=== PATIENT | male | born 1965 | race Caucasian/White ===

== ENCOUNTER → 2016-03-31 | Outpatient (CLI) | payer BC ==
--- NOTE | 2016-03-31 20:34 | CONS ---
DATE OF CONSULTATION: 03/31/2016 CONSULTATION/NEW PATIENT EVALUATION 51-year-old gentleman, who had [facility] for significant excessive daytime sleepiness and obstructive sleep apnea-hypopnea syndrome. HISTORY OF PRESENT ILLNESS/SLEEP-WAKE EVALUATION: Patient had been diagnosed with extremely severe obstructive sleep apnea-hypopnea syndrome about one year ago by results of home sleep apnea test. Test showed apnea-hypopnea index 93.2 with oxygen desaturation to 77%. Since that time the patient is on treatment with auto Pap with a regimen of pressure between 5 and 20 cm of water. I checked his CPAP unit. it showed that average pressure in the machine 13.1. Patient had significant leak from the mask 53 liters per minute. Usage is 28 out of 30 nights for more than 4 hours. SLEEP SCHEDULE: Patient's usual sleep schedule on working days from 9:00 to 11:00 p.m. until 5:00 a.m. and on weekends from around 9:00 to 11:00 until 7:00 or 8:00 a.m. DURING SLEEP: Patient continues to have some awakenings from sleep. DURING THE DAY/WAKE STATE: He feels sleepy during the day. Hope Sleepiness Scale significantly increased to 18. Patient also feels sleepiness while driving. He take naps practically every day when he has time he is taking naps. PAST MEDICAL HISTORY: Positive for hypothyroidism, depression. PAST SURGICAL HISTORY: Colonoscopy. MEDICATIONS: Synthroid, Celexa, vitamin D and B12. SOCIAL HISTORY: Negative for smoking. Alcohol consumption occasional. REVIEW OF SYSTEMS: Awakenings from sleep, sleepiness during the day. No significant changes of the weight according to the patient. No fevers. No double vision. No recent chest pain. No shortness of breath. No abdominal pain. No bleeding episodes. No blood in urine. No seizure episodes. FAMILY HISTORY: Diabetes, hypertension. PHYSICAL EXAMINATION: GENERAL: A 51-year-old gentleman without distress. VITAL SIGNS: BP 113/77, HR 86, RR 16. Height 5 feet 7-1/2. Weight 339, BMI 52.3. Temperature 97.7. Oxygen saturation at room air 92%. HEENT: PERRLA, EOMI. Evaluation of oropharynx showed extremely low position of soft palate Mallampati IV. Restriction of nasal breathing bilaterally. NECK: Supple. No JVD. Thyroid is not palpable. LUNGS: Clear to percussion and to auscultation. Good air exchange. No wheezing or rhonchi. HEART: S1, S2 regular. No murmurs, gallops or rubs. ABDOMEN: Obese. Soft and nontender. Bowel sounds are present. No organomegaly appreciated. EXTREMITIES: Up to 1+ ankle edema. No clubbing or cyanosis. SURVEY RESEARCH ASSOCIATE: Awake, alert, and oriented x3. Cranial nerves 2 to 7 intact. There is no fasciculation or atrophy noted. No focal deficits observed. IMPRESSION: 1. Extremely severe obstructive sleep apnea-hypopnea syndrome. Apnea-hypopnea index 93.2 with oxygen desaturation to 77% by results of home sleep apnea test more than one year ago. 2. Patient is on treatment on auto PAP and demonstrated very good compliance with treatment but continued to have significant sleepiness during the day. Hope Sleepiness Scale increased to 18. He has awakenings multiple times from sleep, significant leak from his mask. 3. Obesity; body mass index 52.3. 4. Depression. 5. Hypothyroidism. PLAN: 1. CPAP titration for re-evaluation of effective CPAP pressure at the present time, also to check for possibly changing the mask to avoid any leak. Possibly patient may need additional chin strap. 2. Losing weight. 3. No driving if feeling any sleepiness. 4. If patient continues to have sleepiness after all adjustments will be done with the CPAP, he could be a candidate for multiple sleep latency tests for objective evaluation of his sleepiness and treatment with medication to prevent sleepiness. Thank you very much for allowing me to participate in the management of your patient. Sincerely, David Rose MD, PhD, FAASM. Diplomat of [place] [employer], Sleep Medicine Board by [place] [employer] [place] [employer] Pr Specialist [facility] [place]
== END | disposition home or self-care (01) ==

== ENCOUNTER → 2016-07-26 | Outpatient (CLI) | payer BC ==
--- NOTE | 2016-07-26 19:10 | US ---
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 GLAND SIZE: Right Lobe: 4.6 x 2.0 x 2.0 cm Overall Parenchyma: heterogenous Left Lobe: 4.3 x 1.6 x 1.6 cm Overall Parenchyma: heterogeneous Isthmus Thickness: 0.7 cm NODULES RIGHT: # of nodules measured on right: 1 1. 1.0 X 1.1 x 1.5 cm echogenic solid nodule at the mid pole with well-defined margins; . This nod ule is wider than tall and shows intranodular vascularity. Prior size: 1.5 x 1.1 x 1.2 cm LEFT: # of nodules measured on left: 1 1. 0.9 X 0.7 x 1.0 cm echogenic solid nodule at the mid pole with well-defined margins; . This nod ule is wider than tall and shows intranodular vascularity. Prior size: not seen ISTHMUS: # of nodules measured in the isthmus: 0 1 Bilateral neck scanned, no evidence of lymphadenopathy. The gland is diffusely heterogeneous in echotexture. IMPRESSION: Correlate for thyroiditis, findings are similar to prior exam
== END | disposition home or self-care (01) ==
LOC: RADUSWWP 14:58
PROVIDERS: ATTEND Family Medicine
DX: E04.2 Nontoxic multinodular goiter (principal)
CPT/HCPCS: 76536

== ENCOUNTER → 2017-05-09 | Outpatient (CLI) | payer BC ==
--- NOTE | 2017-05-09 19:33 | PN ---
PROGRESS NOTE This is a 52-year-old male patient coming in for a compliancy check regarding his obstructive sleep apnea. Last evaluation was almost 2 years ago. He has severe CHAUNCEY with an AHI of 93. He is wearing his CPAP every night which is set at an automatic pressure with a minimum pressure of 5 and a maximum pressure of 20. The patient's main complaint is leak around the mask. He is using a Simplus full-face mask. His leak factor is 82 L/minute. The humidification chamber is found to get empty immediately within a few hours of use. I guess this is essentially related to the excessive leak that the patient is having around the mask. Nevertheless, despite this leak, his apnea- hypopnea index while on treatment is down to 2.2. He has been averaging around 7.7 hours of CPAP use per night and his CPAP use for more than 4 hours is 100% of the time. His weight is up by around 5 pounds. He does not fall asleep while driving; however, after coming home he is a bit tired and sleepy still. No other new-onset comorbid conditions. He is still benefitting from the treatment. PHYSICAL EXAMINATION: BP is 107/70, pulse 97, respiration 16, temperature 97.9, saturation 94% on room air. Height is 5 feet 7 inches. Weight is 332. GENERAL APPEARANCE: Calm, comfortable. No acute distress. Head is atraumatic, normocephalic. Neck is short, supple. Crowding of the posterior pharynx. Mallampati class IV. LUNGS: Clear to auscultation. HEART: Sounds are regular rate and rhythm. Normal S1, S2. No S3. No murmurs. ABDOMEN: Soft, nontender. No organomegaly. EXTREMITIES: No edema. No cyanosis or clubbing. SKIN: No wounds or ulcerations. NEUROLOGIC: Alert and oriented x3. There is no focal neurological deficit. Psychiatrically no anxiety or depression. IMPRESSION: 1. Severe obstructive sleep apnea with an AHI of 93, currently on auto CPAP therapy with good compliancy and good clinical response. 2. Mask issues with leak around the mask. 3. Hypersomnia, improved yet not completely eliminated despite CPAP therapy. 4. Obesity. PLAN: 1. Switch this patient to an AirFit F20 full-face mask, medium size. The patient was fitted to this full-face mask and the patient is expected to do better in terms of his air leak and humidification of the system. 2. Encourage weight loss. 3. Recommended Provigil treatment regarding his ongoing hypersomnia despite being on CPAP; however, the patient declined any medical treatment, thinking that he is doing well for the time being. We will continue to follow. See me back in a year's time, earlier if needed. MMTADEO / PRINCE: [id number] /
== END | disposition home or self-care (01) ==
LOC: SLEEP 16:23
PROVIDERS: ATTEND Internal Medicine Critical Care Medicine
DX: G47.33 Obstructive sleep apnea (adult) (pediatric) (principal); E66.9 Obesity, unspecified; Z99.89 Dependence on other enabling machines and devices

== ENCOUNTER 2018-03-16 06:24 | Day surgery (SDC) | payer BC, MEDICAID ==
[2018-03-12 10:45] VITALS: BMI 48.6
--- NOTE | 2018-03-15 13:01 | HP ---
HISTORY AND PHYSICAL CHIEF COMPLAINT: Left shoulder pain. HISTORY OF PRESENT ILLNESS: The patient is a 53-year-old right-hand dominant, jorge l who presents with left shoulder pain over the past 4 to 5 months. He denies any specific injury. He is having pain with overhead use and at night. He has tried medications in addition to an injection and therapy with worsening of his symptoms. PAST MEDICAL HISTORY: Significant for depression and hypothyroidism. PAST SURGICAL HISTORY: Negative. CURRENT MEDICATIONS: 1. Celexa. 2. Naprosyn. 3. Synthroid. ALLERGIES: He denies drug allergies. FAMILY HISTORY: Significant for stroke, diabetes, cancer. SOCIAL HISTORY: Social history is negative for current tobacco or alcohol use. REVIEW OF SYSTEMS: Sixteen-point review of systems otherwise reviewed and is noncontributory. PHYSICAL EXAMINATION: On examination, the patient is approximately 5 feet 9 inches, 320 pounds of endomorphic habitus. HEENT exam is nonfocal. Neck is supple. Active range of motion left shoulder. Forward elevation 155 degrees, external rotation with arm at side 65 degrees, internal rotation to L1. He has mild subacromial crepitus. He is tender about the anterior subacromial space. Motor strength 5/5 for abduction and external rotation. Impingement test, Neer test, and Speed test are positive. His distal neurovascular exam otherwise appears intact in the left upper extremity. X-rays of the left shoulder obtained in the office show a type 2 acromion with maintained humeral head to acromial distance. MRI report from 10/16/2017 shows evidence of bicipital tendinosis along with a partial- thickness articular surface tear of the rotator cuff. IMPRESSION: 1. Left shoulder impingement with partial thickness rotator cuff tear. 2. Left proximal bicipital tendinosis. 3. Morbid obesity. RECOMMENDATIONS: I talked to the patient at length regarding his condition and treatment options. At this point, he remains quite symptomatic despite conservative measures. After thorough discussion, he opts to proceed with surgery. We will plan to proceed with arthroscopic evaluation with probable subacromial decompression, possible rotator cuff debridement versus repair, in addition to possible biceps tenotomy. Risks and benefits were discussed at length in layman's terms. We will likely perform that as an outpatient procedure. MMODL / IJN: [id number] /
[~2018-03-16 06:24] MED LIST: DEXAMETHASONE SOD PHOSPHATE 10 MG/ML 1 ML VIAL IV ONE; LACTATED RINGERS 1,000 ML IV SCH; LIDOCAINE 1% 20 ML VIAL (10MG/ML) FOR IV START INTRADERMA PRN; MIDAZOLAM (PF) 2 MG/2 ML VIAL IV PRN; fentaNYL (PF) 50 MCG/ML 2 ML AMP IV PRN
[2018-03-16] MEDS ORDERED: MIDAZOLAM 2 MG/2 ML VIAL IVP ONE ×2 (07:02→07:21)
[2018-03-16] MEDS ORDERED: fentaNYL (PF) 50 MCG/ML 2 ML AMP IVP ONE (07:03)
[2018-03-16] MEDS ORDERED: ONDANSETRON 4 MG/2 ML VIAL IVP ONE (07:15)
[2018-03-16] MEDS ORDERED: DEXAMETHASONE SOD PHOSPHATE 10 MG/ML 1 ML VIAL IV ONE (07:16)
--- NOTE | 2018-03-16 07:52 | P.ONQ ---
Anesthesiology Proc Note - PNB - Peripheral Nerve Block Performed Left Interscalene Single Time Out Performed: Yes Procedure Start Time: 07:02 Procedure Stop Time: 07:10 Indication: Requested by physician Specifically requested for management of pain by : Dat Back Sedation Type: Sedate with meaningful contact maintained Preparation: Sterile Prep Position: Supine Needle Types: Other (see comment) (Pujunk) Needle Size: 50mm (2") Needle Gauge: 21 Injectate: 0.5% Ropivacaine (see comment for volume) (25 ml) Blood Aspirated: No Pain Paresthesia on Injection Noted: No Resistance on Injection: Normal Events: Uneventful and Well Tolerated
[2018-03-16] MEDS ORDERED: LIDOCAINE 1% INJ 10MG/ML (20 ML MDV) ONE (07:57)
[2018-03-16] MEDS ORDERED: SUCCINYLCHOLINE CHLORIDE VIAL 200 MG/10 ML VIAL IV ONE (07:57)
[2018-03-16] MEDS ORDERED: ROCURONIUM BROMIDE 10 MG/ML 10 ML VIAL IV ONE (07:57)
[2018-03-16] MEDS ORDERED: PROPOFOL 10 MG/ML 20 ML VIAL IV ONE (07:57)
[2018-03-16] MEDS ORDERED: NEOSTIGMINE 1 MG/ML 10 ML VIAL ONE (07:57)
[2018-03-16] MEDS ORDERED: GLYCOPYRROLATE 0.2 MG/ML 2 ML VIAL ONE (07:57)
[2018-03-16] MEDS ORDERED: ePHEDrine SULFATE/0.9% NACL/PF 50 MG/5 ML SYRINGE IV ONE (07:57)
[2018-03-16] MEDS ORDERED: MIDAZOLAM 2 MG/2 ML VIAL ONE (07:57)
[2018-03-16] MEDS ORDERED: fentaNYL (PF) 50 MCG/ML 2 ML AMP ONE (07:57)
[2018-03-16] MEDS ORDERED: LACTATED RINGERS 1,000 ML IV ONE (09:04)
--- NOTE | 2018-03-16 09:17 | P.OP ---
Date of Procedure: 03/16/18 Preoperative Diagnosis: Left shoulder impingement/partial thickness rotator cuff tear/bicipital tendinosis Postoperative Diagnosis: Same Procedure(s) Performed: Left shoulder arthroscopic subacromial decompression/rotator cuff debridement/ biceps tenotomy Anesthesia: reggie LEMUS Surgeon: Dat Back Fats And Oils Loader #1: Nitish Ortiz Estimated Blood Loss (ml): 10 Pathology: none sent Condition: stable Disposition: PACU Indications for Procedure: The patient's a 53-year-old male who presents with progressive left shoulder pain despite conservative measures. A discussion of the risks and benefits of operative intervention versus continued conservative measures was made with patient. He opted to proceed with surgery. Operative risks to include infection, neurovascular injury, development of blood clots, possible incomplete resolution of symptoms, possible worsening symptoms and need for subsequent procedures was discussed. Informed consent was obtained. Operative Findings: As below Description of Procedure: The patient was brought to the operating room, and after induction of general anesthesia was placed in a beachchair position. A preoperative interscalene block was placed for postoperative analgesia. I examined the left shoulder. There was no gross block to passive motion or gross glenohumeral instability. The left upper extremity was prepped and draped in normal fashion. The bony outlines the acromion, distal clavicle, and coracoid process were outlined with a skin marker. The glenohumeral joint was inflated with 50 mL of saline utilizing a spinal needle from posterior approach. A posterior portal was made through a 5 mm skin incision 1 cm medial and inferior to the posterior lateral border time. A blunt trocar was used to easily into the joint. Diagnostic arthroscopy was performed. An anterior portal was made just lateral to the coracoid process entering the joint above the subscapularis tendon. The subscapularis tendon appeared to be intact. Anterior labrum was intact. The inferior recess was inspected. The posterior labrum was intact. There was a high-grade partial-thickness tear of the long head of the biceps involving interarticular portion. Was elected to proceed with release at this point. This was released from the superior labrum with electrocautery along and was allowed to retract to the bicipital groove. On inspection the rotator cuff a partial thickness tear involving the supraspinatus tendon was noted. This was debrided back to stable base with a motorized shaver. This involved 2-3 mm of the tendon thickness. The posterior portion of the cuff was intact. The arthroscope was placed in the subacromial space. A lateral portal was made through a 5 mm skin incision 2 cm inferior to the anterolateral border of the acromion. The soft tissue on the undersurface of the acromion was debrided with a motorized shaver and electrocautery clearly defining the anterior medial and lateral borders as well as the distal clavicle. An anterior inferior acromioplasty was performed with a motorized leeann starting anterolateral, then extending this posteriorly, then extending this medially. I converted to a flat acromion and this was verified in the posterior and lateral viewing portals. The rotator cuff was inspected on the bursal surface. There was bursal thickening that was debrided with a motorized shaver. No significant bursal surface tear was noted. The arthroscope was then removed. The portals were closed with simple 3-0 nylon suture. A sterile dressing was applied in addition to a sling. The patient was then awoken from general anesthesia and transferred to recovery room in good condition. Blood loss was estimated at 10 mL. No complications were incurred. Sponge and needle counts were correct in the case. Mendel SINGLETON assisted and the major components of the case to include arm positioning, subacromial decompression, rotator cuff debridement, and closure.
[2018-03-16 09:35] VITALS: TEMP 97.1
[2018-03-16] MEDS: HYDROmorphone 1 MG/ML 1 ML SYRINGE IVP ONE ×4 (09:44→10:00)
[2018-03-16] MEDS ORDERED: ROPIVACAINE 5 MG/ML 30 ML VIAL MISCELLANE ONE (10:20)
[2018-03-16 11:35] VITALS: RESP 20
[2018-03-16 12:07] VITALS: PULSE 100
[2018-03-16 12:21] VITALS: BP 102/65
== END 2018-03-16 12:52 | disposition home or self-care (01) ==
LOC: OR 06:24
PROVIDERS: ATTEND Orthopaedic Surgery
DX: M75.112 Incomplete rotator cuff tear or rupture of left shoulder, not specified as traumatic (principal); S46.112A Strain of muscle, fascia and tendon of long head of biceps, left arm, initial encounter; X58.XXXA Exposure to other specified factors, initial encounter; M75.42 Impingement syndrome of left shoulder; E66.01 Morbid (severe) obesity due to excess calories; Z68.42 Body mass index [BMI] 45.0-49.9, adult; F34.1 Dysthymic disorder; E53.9 Vitamin B deficiency, unspecified; E55.9 Vitamin D deficiency, unspecified; E03.9 Hypothyroidism, unspecified; F41.8 Other specified anxiety disorders; N52.9 Male erectile dysfunction, unspecified; G47.33 Obstructive sleep apnea (adult) (pediatric); Z99.89 Dependence on other enabling machines and devices; Z79.1 Long term (current) use of non-steroidal anti-inflammatories (NSAID); Z79.890 Hormone replacement therapy; Z79.899 Other long term (current) drug therapy
CPT/HCPCS: 64415; 29822; 29826; J2250; J0330; J1100; J2710; J0690; J2405; J2001; J3010; J1170; J2795; J2704

== ENCOUNTER → 2018-06-12 | Outpatient (CLI) | payer BC, MEDICAID ==
--- NOTE | 2018-06-12 18:37 | PN ---
PROGRESS NOTE This is a 53-year-old male patient with severe CHAUNCEY and AHI of 93 coming in for an annual check. He is still on APAP, minimum of 5, maximum of 20; very compliant. He continues to be benefitting from the treatment. His APAP is functional. He is averaging around 8.7 hours of APAP use per night. His APAP use for more than 4 hours is above 90%. Average pressure is about 14.8. Leak is around 36 L/minute. AHI is down to 0.9 while on treatment. No hypersomnia or sleepiness during the day. Weight has been stable. Ripley score is down to 10. REVIEW OF SYSTEMS: Fourteen-point review of systems was done. Positive findings are all mentioned above in the history of present illness. PHYSICAL EXAMINATION: BP is 104/78, pulse 90, respirations 16, temperature 97.9, saturation 94% on room air. Height is 5 feet 7 inches, weight 347. Ripley score is 13. GENERAL APPEARANCE: Calm, comfortable. Head is atraumatic, normocephalic. NECK: Supple, short. Crowding of posterior pharynx. There is no goiter or neck mass. Mallampati IV. LUNGS: Clear to auscultation. HEART: Heart sounds are regular rate and rhythm. Normal S1, S2. No S3, S4. No murmurs. ABDOMEN: Soft, nontender. No organomegaly. EXTREMITIES: No edema. No cyanosis or clubbing. NEUROLOGIC: Alert and oriented x3. No focal neurological deficits. PSYCHIATRIC: Negative for anxiety or depression. IMPRESSION: 1. Obstructive sleep apnea, severe, well treated. AHI is 93. Currently on APAP. The patient is compliant and continues to clinically benefit from treatment. 2. Obesity with body mass index of 54.3. 3. Hypersomnia, improved. PLAN: Continue treatment. Use the AirFit F20 large-sized full-face mask. No need for any pressure adjustments. Will continue to follow. See me back in a year's time in followup. MMODL / IJN: [id number] /
== END ==
LOC: SLEEP 15:39
PROVIDERS: ATTEND Internal Medicine Critical Care Medicine
DX: G47.33 Obstructive sleep apnea (adult) (pediatric) (principal); E66.9 Obesity, unspecified; Z68.43 Body mass index [BMI] 50.0-59.9, adult; Z99.89 Dependence on other enabling machines and devices

== ENCOUNTER → 2020-06-09 | Outpatient (CLI) | payer MEDICAID ==
--- NOTE | 2020-06-09 17:00 | PN ---
PROGRESS NOTE This 55-year-old male patient is seeing me in followup regarding his obstructive sleep apnea. Doing well. No specific complaints. He has severe CHAUNCEY with an AHI of 93 and the patient has been on an APAP mode with a minimum pressure of 5, maximum of 20. He continues to benefit from the CPAP treatment. He has gained around 6 pounds since his last evaluation 2 years ago. His current weight is up to 353 and he carries a BMI of 53.6. His Marshfield score currently is 13. The patient continues to be very compliant. He continues to benefit from the CPAP treatment. He has been utilizing the machine every night, based on 30-day compliancy, and he has been achieving more than 4 hours of CPAP use more than 90% of the time. He is averaging around 8.1 hours per night and his average pressure delivered by the machine is 16.6. Note that the patient's leak is on the order of 23 L/minute and his AHI is down to 0.3. He is using an AirFit F20 full- face mask, large size. No complaints. No aerophagia. No tiredness or sleepiness during the day. He does not take any naps during the day. His BP is under good control. No changes medication. No reported stroke, CVA, congestive heart failure or any cardiac arrhythmias. REVIEW OF SYSTEMS: Fourteen-point review of system was done. Positive findings were all mentioned above in the history of present illness. VITAL SIGNS: BP is 131/71, pulse 99, respirations 20, temperature 98.6, saturation 94% on room air. Height is 5 feet 8 inches, weight 353. Marshfield score is 15. BMI is 53.6. GENERAL APPEARANCE: Calm, comfortable. HEAD: Atraumatic, normocephalic. NECK: Supple. No JVD. No goiter or neck masses. LUNGS: Diminished; otherwise clear. HEART: Heart sounds are regular rate and rhythm. Normal S1, S2. No S3, S4. No murmurs. ABDOMEN: Soft, nontender. No organomegaly. EXTREMITIES: No edema. No cyanosis or clubbing. IMPRESSION: 1. Severe symptomatic obstructive sleep apnea; AHI of 93, currently undergoing successful APAP treatment. 2. Chronic hypersomnia, improved. 3. Obesity with interval few-pounds weight gain. Current BMI is up to 53.6. Weight is up to 353. PLAN: 1. He continues to benefit from the CPAP treatment. 2. Continue using AirFit F20 full-face mask. 3. Keep the same pressure setting. 4. Keep the same mask interface. 5. Compliance data was checked. Encourage weight loss. Sleep hygiene measures are adequate. The patient's Marshfield score is low. Continue to follow. See me back in a few years' time in followup. No need for any further adjustments. MMODL / IJN: [id number] /
== END | disposition home or self-care (01) ==
LOC: SLEEP 14:53
PROVIDERS: ATTEND Internal Medicine Critical Care Medicine
DX: G47.33 Obstructive sleep apnea (adult) (pediatric) (principal); G47.10 Hypersomnia, unspecified; E66.9 Obesity, unspecified; Z68.43 Body mass index [BMI] 50.0-59.9, adult; Z99.89 Dependence on other enabling machines and devices

== ENCOUNTER → 2021-06-15 | Outpatient (CLI) | payer MEDICAID ==
--- NOTE | 2021-06-15 15:11 | P.PN ---
Subjective Progress Note Date: 06/15/21 55-year-old male patient coming in for an annual checkup regarding his obstructive sleep apnea. The patient is known to me and he follows up with the sleep center for many years. The patient is known to have severe obstructive sleep apnea and he carries an apnea popping index of 93. Over the years, he was given a CPAP unit which is working in the APAP mode at a pressure minimum of 5 and a maximum of 20. The patient has been very compliant to his APAP machine over the years. He has utilize that overnight without any major issues. More recently, his machine is acting up and it's delivering a very high pressure has become very noisy. On several occasions, he has to wake up and turn off the m achine and restart the whole process. He says made him quite uncomfortable and the patient is looking for a new CPAP machine replacement. I think is reasonable tooffer the patient is CPAP machine. I checked her compliance data on his machine and the patient is averaging 8.9 hours of CPAP use per night. He has used the machine 29 out of the past 30 days and he has been using the machine more than 4 hours 100% of the time. His average pressure delivered by the machine is around 16.4 cm of water. Leak is in order of 31 L (AHI is down to 0.3 and the patient is using an airfit F20 medium-sized fullface mask. Temperature of the tube is 81F. Humidity is automatic. His body weight is down by around 4 pounds since his last evaluation.he has no new complaints. No headaches. No chest pain. No heartburn overnight. No shortness of breath. No new onset comorbidities. He is fully functional during the day. No tiredness. No fatigue. No sleepiness. No cardiac arrhythmias. Objective - Exam BP is 117/73, [place] score is at 3, weight is 3 and 49 pounds, temperature is 97.7, pulse is 90 with a respiration of 16. Gen. appearance the patient is calm and comfortable nonacute distress The patient appeared well nourished and normally developed. Vital signs as documented. Head exam is unremarkable. No scleral icterus or corneal arcus noted. Neck is without jugular venous distension, thyromegaly, or carotid bruits. Carotid upstrokes are brisk bilaterally.Mallampati class IV Lungs are clear to auscultation and percussion. Cardiac exam reveals the PMI to be normally sized and situated. Rhythm is regular. First and second heart sounds normal. No murmurs, rubs or gallops. Abdominal exam reveals normal bowel sounds, no masses, no organomegaly and no aortic enlargement. Extremities are nonedematous and both femoral and pedal pulses are normal.AThe patient appeared well nourished and normally developed. Vital signs as documented. Head exam is unremarkable. No scleral icterus or corneal arcus noted. Neck is without jugular venous distension, thyromegaly, or carotid bruits. Carotid upstrokes are brisk bilaterally. Lungs are clear to auscultation and percussion. Cardiac exam reveals the PMI to be normally sized and situated. Rhythm is regular. First and second heart sounds normal. No murmurs, rubs or gallops. Abdominal exam reveals normal bowel sounds, no masses, no organomegaly and no aortic enlargement. Extremities are nonedematous and both femoral and pedal pulses are normal.Neurologically, the patient is awake and alert and the patient does not have any focal neurological deficit. Cranial nerves are essentially intact. Assessment and Plan Plan: 1 severe obstructive sleep apnea, AHI of 93and the patient is a maintained on APAP and his treatment has been successful over the years on APAP mode for depression minimal 5 and a maximum of 20 2 obesity with a BMI of 53. Weight has been stable 3 chronic hypersomnia, recovered with CPAP therapy 4 hypothyroidism maintained on thyroid hormone replacement Plan the patient has utilize his CPAP machine over the years with great success. Most recently, the machine is acting up and it's delivering various high pressures in the middle of the night which is waking him up from sleep. It seems that the machine has exceeded its life expectancy and for that reason I'm recommending a new CPAP she for this patient. I'm recommending the air sense 11 as mentioned units which will be set at a pressure of 16 cm of water as the patient's average pressure delivered by the machine is around 16.4 cm of water. We'll keep the same mask interface which will be in airfit F20. Keep the temperature of the tubing at 81F. Humidity will be automatic. Encourage weight loss. The patient was a lost 4 pounds. No new onset comorbidities. The patient will see her back in the sleep center and 30-90 days after obtaining the new machine for another compliance check. We'll continue to follow.
== END ==
LOC: SLEEP 14:25
PROVIDERS: ATTEND Internal Medicine Critical Care Medicine
DX: G47.33 Obstructive sleep apnea (adult) (pediatric) (principal); E66.9 Obesity, unspecified; Z68.43 Body mass index [BMI] 50.0-59.9, adult; E03.9 Hypothyroidism, unspecified; Z79.890 Hormone replacement therapy; Z99.89 Dependence on other enabling machines and devices